=== PATIENT | female | born 1960 | race Caucasian/White ===

== ENCOUNTER 2023-09-17 07:48 | Day surgery (SDC) | payer MEDICARE ==
[~2023-09-17] VITALS: Ht 157.5 cm; Wt 59.1 kg
[~2023-09-17 07:48] MED LIST: SODIUM CHLORIDE 0.9% 1,000 ML IV ONE; SODIUM CHLORIDE 0.9% 1,000 ML ONE
[2023-09-17 08:57] LABS: BASOPHILS % (AUTO) 1.3 % (0.0-2.0); EOSINOPHILS % (AUTO) 6.3 % (1.0-6.0); HEMATOCRIT 31.8 % (36-46); HEMOGLOBIN 10.4 g/dL (12.0-16.0); MEAN CORPUSCULAR HEMOGLOBIN 30.9 pg (26.0-34.0); MEAN CORPUSCULAR HGB CONC 32.7 G/dL (31.0-37.0); MEAN CORPUSCULAR VOLUME 95 fL (80-100); MONOCYTES # (AUTO) 0.4 K/uL (0.1-1.0); MONOCYTES % (AUTO) 9.5 % (2.0-9.0); NEUTROPHILS # (AUTO) 2.4 K/uL (1.8-7.7); NEUTROPHILS % (AUTO) 58.9 % (40.0-70.0); PLATELET COUNT (AUTO) 149 K/uL (150-450); RED BLOOD CELL COUNT(AUTO) 3.36 MIL/uL (4.00-5.20); RED CELL DISTRIBUTION WIDTH 18.1 % (11.5-14.5); WHITE BLOOD COUNT (AUTO) 4.1 K/uL (4.5-11.0)
[2023-09-17 09:10] LABS: ALBUMIN 3.4 g/dL (3.4-5.0); BILIRUBIN,TOTAL 0.5 mg/dL (0.1-1.0); CALCIUM, TOTAL 8.7 mg/dL (8.8-10.5); CREATININE 6.4 mg/dL (0.60-1.30)
[2023-09-17 09:11] LABS: PROTHROMBIN TIME 10.4 SEC (9.4-11.6)
[2023-09-17] MEDS ORDERED: CeFAZolin 2 GM/DEXTROSE 50 ML IV ONE (09:15)
[2023-09-17] MEDS ORDERED: SODIUM CHLORIDE 0.9% 0 ML ONE ×2 (09:18→09:20)
[2023-09-17] MEDS ORDERED: CeFAZolin SODIUM 1 GM VIAL ONE (09:18)
[2023-09-17] MEDS ORDERED: HEPARIN SODIUM,PORCINE 5,000 UNITS/ML VIAL ONE (09:18)
[2023-09-17] MEDS ORDERED: FLUC200T85 PO (09:20)
[2023-09-17] MEDS ORDERED: LIDOCAINE/PF 1% 30 ML VIAL ONE (09:20)
[2023-09-17] MEDS ORDERED: ATOR20TA PO (09:20)
[2023-09-17] MEDS ORDERED: SERT-158 PO (09:20)
[2023-09-17] MEDS ORDERED: PRED5SOL PO (09:20)
[2023-09-17] MEDS ORDERED: SENN-338 PO (09:20)
[2023-09-17] MEDS ORDERED: AMOX1TAB15 PO (09:20)
[2023-09-17] MEDS ORDERED: GABA-1201 PO (09:20)
[2023-09-17] MEDS ORDERED: ACET-3385 PO (09:20)
[2023-09-17 09:26] LABS: POTASSIUM 6.1 mmol/L (3.5-5.1)
[2023-09-17 09:36] LABS: GLUCOMETER DEV NAME(LOC) SDS.; GLUCOSE,POINT OF CARE 129 MG/DL (70-110)
== END 2023-09-17 10:20 | disposition home or self-care (01) ==
LOC: SURGERY 07:48
PROVIDERS: ATTEND Surgery
DX: E11.22 Type 2 diabetes mellitus with diabetic chronic kidney disease (principal); Z53.8 Procedure and treatment not carried out for other reasons; N18.6 End stage renal disease; I12.0 Hypertensive chronic kidney disease with stage 5 chronic kidney disease or end stage renal disease; Z79.899 Other long term (current) drug therapy; Z98.890 Other specified postprocedural states
CPT/HCPCS: 71046; 80053; 82962; 85025; 85610; 85730; 36415; J7030; 93005; J0690; J1644; J3490; J7050

== ENCOUNTER 2023-09-21 06:13 | Day surgery (SDC) | payer MEDICARE ==
[~2023-09-21] VITALS: Ht 157.5 cm; Wt 59.1 kg
[~2023-09-21 06:13] MED LIST changes: +ACET-3385 PO; +AMOX1TAB15 PO; +ATOR20TA PO; +CHLORHEXIDINE GLUCONATE 2% TOWELETTE [2'S/6'S] TP ONE; +CeFAZolin 2 GM/DEXTROSE 50 ML IV ONE; +ETHYL ALCOHOL 62% ANTISEPTIC NASAL SANITIZER 0.6 ML AMPUL NASAL ONE; +FLUC200T85 PO; +GABA-1201 PO; +PRED5SOL PO; +SENN-338 PO; +SERT-158 PO
[2023-09-21] MEDS ORDERED: ONDANSETRON HCL 4 MG/2 ML VIAL IVP ONE (06:14)
[2023-09-21] MEDS ORDERED: SUGAMMADEX SODIUM 200 MG/2 ML VIAL IVP ONE (06:14)
[2023-09-21] MEDS ORDERED: EPHEDrine SULFATE 50 MG/ML VIAL IM ONE (06:14)
[2023-09-21] MEDS ORDERED: 0.9% SODIUM CHLORIDE 10 ML VIAL IVP ONE (06:14)
[2023-09-21] MEDS ORDERED: DEXAMETHASONE SOD PHOS 4 MG/ML VIAL IVP ONE (06:14)
[2023-09-21] MEDS ORDERED: PROPOFOL 1% 20 ML VIAL IVP ONE (06:14)
[2023-09-21] MEDS ORDERED: LIDOCAINE/PF 2% 5 ML VIAL IM ONE (06:14)
[2023-09-21] MEDS ORDERED: HEPARIN SODIUM,PORCINE 10,000 UNITS/ML VIAL IV ONE (06:14)
[2023-09-21] MEDS ORDERED: ROCURONIUM BROMIDE 10 MG/ML 5 ML VIAL IVP ONE (06:14)
[2023-09-21] MEDS ORDERED: MIDAZOLAM HCL 2 MG/2 ML VIAL IVP ONE (06:14)
[2023-09-21] MEDS ORDERED: FentaNYL CITRATE PF 100 MCG/2 ML VIAL IVP ONE (06:14)
[2023-09-21 06:43] LABS: BASOPHILS % (AUTO) 1.3 % (0.0-2.0); EOSINOPHILS % (AUTO) 6.2 % (1.0-6.0); HEMATOCRIT 32.9 % (36-46); HEMOGLOBIN 10.7 g/dL (12.0-16.0); LYMPHOCYTES % (AUTO) 24.6 % (22.0-44.0); MEAN CORPUSCULAR HEMOGLOBIN 30.6 pg (26.0-34.0); MEAN CORPUSCULAR HGB CONC 32.6 G/dL (31.0-37.0); MEAN CORPUSCULAR VOLUME 94 fL (80-100); MONOCYTES # (AUTO) 0.4 K/uL (0.1-1.0); MONOCYTES % (AUTO) 9.8 % (2.0-9.0); NEUTROPHILS # (AUTO) 2.3 K/uL (1.8-7.7); NEUTROPHILS % (AUTO) 58.1 % (40.0-70.0); PLATELET COUNT (AUTO) 160 K/uL (150-450); RED BLOOD CELL COUNT(AUTO) 3.51 MIL/uL (4.00-5.20); RED CELL DISTRIBUTION WIDTH 17.7 % (11.5-14.5)
[2023-09-21] MEDS ORDERED: CeFAZolin 2 GM/DEXTROSE 50 ML IV ONE (07:00)
[2023-09-21] MEDS ORDERED: CeFAZolin SODIUM 1 GM VIAL ONE (07:06)
[2023-09-21] MEDS ORDERED: HEPARIN SODIUM,PORCINE 5,000 UNITS/ML VIAL ONE (07:06)
[2023-09-21] MEDS ORDERED: LIDOCAINE/PF 1% 30 ML VIAL ONE (07:06)
[2023-09-21 07:07] LABS: CREATININE 4.43 mg/dL (0.60-1.30); POTASSIUM 5.1 mmol/L (3.5-5.1)
[2023-09-21] MEDS ORDERED: THROMBIN, BOVINE 20000 UNITS/VIAL POWDER TP ONE (07:07)
[2023-09-21] MEDS ORDERED: SODIUM CHLORIDE 0.9% 50 ML ONE (07:07)
[2023-09-21] MEDS ORDERED: SODIUM CHLORIDE 0.9% 100 ML ONE (07:07)
[2023-09-21] MEDS ORDERED: GELATIN SPONGE,ABSORBABLE 100 MM TP ONE (07:07)
[2023-09-21 07:16] LABS: ALBUMIN 3.5 g/dL (3.4-5.0); BILIRUBIN,TOTAL 0.5 mg/dL (0.1-1.0); TOTAL PROTEIN, SERUM 7.2 g/dL (6.4-8.2)
[2023-09-21 07:18] LABS: PROTHROMBIN TIME 10.6 SEC (9.4-11.6)
[2023-09-21 07:20] LABS: GLUCOMETER DEV NAME(LOC) SDS.; GLUCOSE,POINT OF CARE 117 MG/DL (70-110)
[2023-09-21] MEDS ORDERED: VANCOMYCIN HCL 1 GM/VIAL ONE (07:44)
[2023-09-21] MEDS ORDERED: SODIUM CHLORIDE 0.9% 250 ML IV ONE (07:52)
[2023-09-21] MEDS ORDERED: MEPERIDINE-PF 25 MG/ML VIAL IVP PRN (08:15)
[2023-09-21] MEDS ORDERED: HYDROmorphone HCL 2 MG/ML SYRINGE IVP PRN (08:15)
[2023-09-21] MEDS ORDERED: FentaNYL CITRATE PF 100 MCG/2 ML VIAL IVP PRN (08:15)
[2023-09-21] MEDS ORDERED: PROTAMINE SULFATE 10 MG/ML 5 ML VIAL ONE (09:00)
[2023-09-21] MEDS ORDERED: ACETAMINOPHEN 1000 MG/ISO-OSM 100 ML IV ONE (09:45)
[2023-09-21] MEDS ORDERED: NALOXONE HCL 1 MG/ML 2 ML SYRINGE IVP PRN (09:45)
[2023-09-21] MEDS ORDERED: FentaNYL CITRATE PF 100 MCG/2 ML VIAL ONE (10:01)
[2023-09-21] MEDS ORDERED: BUPIVACAINE LIPOSOME/PF 1.3%-13.3MG/ML SUSPENSION 20 ML VIAL INJ ONE (10:30)
[2023-09-21] MEDS ORDERED: OXYGEN THERAPY IH SCH (20:00)
== END 2023-09-21 12:10 | disposition home or self-care (01) ==
LOC: SURGERY 06:13
PROVIDERS: ATTEND Surgery
DX: E11.22 Type 2 diabetes mellitus with diabetic chronic kidney disease (principal); I12.0 Hypertensive chronic kidney disease with stage 5 chronic kidney disease or end stage renal disease; N18.6 End stage renal disease; I77.0 Arteriovenous fistula, acquired; Z79.82 Long term (current) use of aspirin; Z98.890 Other specified postprocedural states; Z79.899 Other long term (current) drug therapy; D64.9 Anemia, unspecified
CPT/HCPCS: 36833; 80053; 82962; 85025; 85610; 85730; 36415; 88304; J2704; J0690 ×2; J1100; J3490 ×4; J3010; J1644 ×2; J2250; J2405; J2720; J3370; Q9967; J7030; J7050 ×3; J0131; C1768; C9290